=== PATIENT | male | born 1985 | race Caucasian/White ===

== ENCOUNTER 2016-08-18 11:42 | Emergency (ER) | payer OTHER | END 2016-08-18 13:50 | disposition home or self-care (01) | LOC: ER 11:42 | DX: R55 Syncope and collapse (principal); G43.909 Migraine, unspecified, not intractable, without status migrainosus; F17.210 Nicotine dependence, cigarettes, uncomplicated; W22.8XXA Striking against or struck by other objects, initial encounter | CPT/HCPCS: 36415; 96360 ==